=== PATIENT | female | born 1965 | race Two or more races ===

== ENCOUNTER 2017-11-05 09:02 | Emergency (ER) | payer OTHER ==
--- NOTE | 2017-11-05 09:21 | EDM.PDOC ---
ED HPI GENERAL MEDICAL PROBLEM - General Chief Complaint: ENT Problem Stated Complaint: SORE THROAT, EARACHE BOTH EARS Time Seen by Provider: 11/05/17 09:10 - History of Present Illness INITIAL COMMENTS - FREE TEXT/NARRATIVE: HISTORY AND PHYSICAL: History of present illness: [52-year-old female presenting to department with chief complaint of one week of sore throat and left ear pain with past medical history of hypertension and osteoporosis. States that for the last week she has had increasing sore throat to the point today that is becoming somewhat painful to swallow. She has some associated left ear pain/fuzziness but denies any fever, chills, malaise, nausea, vomiting , diarrhea, hematuria, dysuria, or other signs of systemic infection. She has also noticed some mild submandibular and anterior cervical lymphadenopathy that is painful to palpation. Patient currently denies any chest pain, shortness breath, syncopal episodes, or focal neurologic deficits. ] Review of systems: As per history of present illness and below otherwise all systems reviewed and negative. Past medical history: As per history of present illness and as reviewed below otherwise noncontributory. Surgical history: As per history of present illness and as reviewed below otherwise noncontributory. Social history: No reported history of drug or alcohol abuse. Family history: As per history of present illness and as reviewed below otherwise noncontributory. Physical exam: HEENT: Atraumatic, normocephalic, pupils reactive, negative for conjunctival pallor or scleral icterus, mucous membranes moist, throat erythematous with mild inflammation and swelling of tonsils nonkissing, neck supple, mildly enlarged submandibular and anterior cervical lymphadenopathy that are tender to palpation., trachea midline. Lungs: Clear to auscultation, breath sounds equal bilaterally, chest nontender. Heart: S1S2, regular, negative for clicks, rubs, or JVD. Abdomen: Soft, nondistended, nontender. Negative for masses or hepatosplenomegaly. Negative for costovertebral tenderness. Pelvis: Stable nontender. Genitourinary: Deferred. Rectal: Deferred. Extremities: Atraumatic, negative for cords or calf pain. Neurovascular unremarkable. Neuro: Awake, alert, oriented. Cranial nerves II through XII unremarkable. Cerebellum unremarkable. Motor and sensory unremarkable throughout. Exam nonfocal. Diagnostics: [Rapid strep] Therapeutics: [Afrin, Flonase, Z-pack for 5 days] Impression: [Strep pharyngitis/tonsillitis] Plan: [Discussed with patient that her symptoms are most likely related to bacterial pharyngitis/tonsillitis. Did prescribe a Z-Alejo for 5 days. Also instructed patient to use Afrin and Flonase for symptomatic relief of her nasal congestion. She should use the Afrin and Flonase twice daily 2 puffs each nostril. Also instructed her to not use the Afrin for greater than 5 days secondary to rebound vasodilation. She continues Tylenol for symptomatic relief of headache as well as fever reduction. Maximum dose 4000 mg daily. Patient was in clear understanding and was discharged in good condition. Instructed patient to return to emergency department if she had any new or worsening symptoms.] throat Pain Score (Numeric/FACES): 7 - Related Data Allergies Allergy/AdvReac Type Severity Reaction Status Date / Time acetaminophen Allergy Other Verified 11/05/17 09:13 [From Darvocet-N] propoxyphene Allergy Other Verified 11/05/17 09:13 [From Darvocet-N] Home Meds: Home Meds Hydrochlorothiazide 25 mg PO DAILY 11/05/17 [History] Losartan [Cozaar] 100 mg PO DAILY 11/05/17 [History] Tolterodine [Detrol] 4 mg PO DAILY 11/05/17 [History] Past Medical History HEENT History: Reports: None Cardiovascular History: Reports: Hypertension Respiratory History: Reports: None Gastrointestinal History: Reports: None Genitourinary History: Reports: None ST[employer]ER History: Reports: None Musculoskeletal History: Reports: None Neurological History: Reports: None Psychiatric History: Reports: None Endocrine/Metabolic History: Reports: None Hematologic History: Reports: None Immunologic History: Reports: None Oncologic (Cancer) History: Reports: None Dermatologic History: Reports: None - Past Surgical History Head Surgeries/Procedures: Reports: None HEENT Surgical History: Reports: None Cardiovascular Surgical History: Reports: None Respiratory Surgical History: Reports: None GI Surgical History: Reports: None Female Surgical History: Reports: None Endocrine Surgical History: Reports: None Neurological Surgical History: Reports: None Musculoskeletal Surgical History: Reports: None Oncologic Surgical History: Reports: None Dermatological Surgical History: Reports: None Social & Family History - Family History Family Medical History: Noncontributory - Tobacco Use Smoking Status *Q: Never Smoker Second Hand Smoke Exposure: No - Caffeine Use Caffeine Use: Reports: None - Recreational Drug Use Recreational Drug Use: No ED ROS GENERAL - Review of Systems Review Of Systems: See Below ED EXAM, GENERAL - Physical Exam Exam: See Below Course - Vital Signs Last Recorded V/S: Last Vital Signs Temp 96.5 F 11/05/17 09:13 Pulse 105 H 11/05/17 09:13 Resp 18 11/05/17 09:13 BP 136/81 11/05/17 09:13 Pulse Ox 96 11/05/17 09:13 - Orders/Labs/Meds Orders: Active Orders 24 hr Category Date Time Status CULTURE STREP A CONFIRMATION [] Stat Lab 11/05/17 09:19 Results STREP SCRN A RAPID W CULT CONF [RM] Stat Lab 11/05/17 09:19 Ordered Departure - Departure Time of Disposition: 09:55 Disposition: Home, Self-Care 01 Condition: Good Clinical Impression: Tonsillitis, Pharyngitis - Discharge Information Referrals: PCP,None [Primary Care Provider] - Forms: ED Department Discharge Additional Instructions: My general discharge The following information is given to patients seen in the emergency department who are being discharged to home. This information is to outline your options for follow-up care. We provide all patients seen in our emergency department with a follow-up referral. The need for follow-up, as well as the timing and circumstances, are variable depending upon the specifics of your emergency department visit. If you don't have a primary care physician on staff, we will provide you with a referral. We always advise you to contact your personal physician following an emergency department visit to inform them of the circumstance of the visit and for follow-up with them and/or the need for any referrals to a consulting specialist. The emergency department will also refer you to a specialist when appropriate. This referral assures that you have the opportunity for follow-up care with a specialist. All of these measure are taken in an effort to provide you with optimal care, which includes your follow-up. Under all circumstances we always encourage you to contact your private physician who remains a resource for coordinating your care. When calling for follow-up care, please make the office aware that this follow-up is from your recent emergency room visit. If for any reason you are refused follow-up, please contact the [facility] Emergency Department at and asked to speak to the emergency department charge nurse. JOEL [facility] [address] [place] [id number] - My Orders Last 24 Hours: My Active Orders 11/05/17 09:19 CULTURE STREP A CONFIRMATION [RM] Stat STREP SCRN A RAPID W CULT CONF [RM] Stat - Assessment/Plan Last 24 Hours: My Active Orders 11/05/17 09:19 CULTURE STREP A CONFIRMATION [RM] Stat STREP SCRN A RAPID W CULT CONF [RM] Stat
== END 2017-11-05 10:00 | disposition home or self-care (01) ==
LOC: MW.ED 09:02
DX: J02.0 Streptococcal pharyngitis (principal); J03.00 Acute streptococcal tonsillitis, unspecified; I10 Essential (primary) hypertension; Z88.8 Allergy status to other drugs, medicaments and biological substances; Z79.899 Other long term (current) drug therapy
CPT/HCPCS: 87081; 87880; 99282; 99283